=== PATIENT | female | born 1975 | race Caucasian/White ===

== ENCOUNTER → 2019-03-29 | Day surgery (SDC) | payer BC ==
[2019-03-24 12:11] LABS: Basophils # (auto) 0 uL; Monocytes # (auto) 0.7 uL; Monocytes % (auto) 7.5 % (0.0-12.0); Neutrophils # (auto) 6.4 uL; White Blood Cell 9.2 10^3/uL (4.4-10.8)
[2019-03-24 12:13] LABS: Basophils % (auto) 0.5 % (0.0-2.0); Eosinophils # (auto) 0.2 uL; Eosinophils % (auto) 2.6 % (0.0-7.0); Hematocrit 37.5 % (36.0-46.0); Hemoglobin 12.3 g/dL (12.2-16.2); Lymphocytes # (auto) 1.9 uL; Mean Corpuscular Hemoglobin 26.5 pg (28.0-32.0); Mean Corpuscular Hgb Conc. 32.7 g/dL (32.0-36.0); Mean Corpuscular Volume 81.1 fL (80.0-100.0); Neutrophils % (auto) 69.4 % (37.0-80.0); Platelet Count (auto) 405 10^3/uL (140-450); Red Blood Cells 4.62 10^6/uL (4.0-5.20); Red Cell Distribution Width 18.2 % (11.8-14.3)
[2019-03-24 12:26] LABS: INR 1.01 (0.9-1.15); Partial Thromboplastin Time 25.4 sec (23.64-32.05)
[2019-03-24 12:33] LABS: Albumin 3.7 g/dL (3.4-5.0); Calcium 9.1 mg/dL (8.5-10.1); Potassium 4.1 mmol/L (3.5-5.1)
[2019-03-24 12:37] LABS: BUN/Creatinine Ratio 15.4; Bilirubin, Total 0.3 mg/dL (0.2-1.0); Total Protein 7.9 g/dL (6.4-8.2)
[2019-03-24 12:46] LABS: Urine Bacteria NONE SEEN /hpf (None Seen); Urine Blood Negative /uL (Negative); Urine Specific Gravity 1.026 (1.001-1.035); Urine WBC 1 /hpf (0 - 5)
[~2019-03-29] VITALS: Ht 177.8 cm; Wt 98.9 kg
[~2019-03-29] MED LIST: ALPR0.5T PO; BUPIVACAINE 0.25% INJ 50ML VIAL ONE; BUPIVACAINE 0.5% MPF INJ 30ML SDV IJ ONE; BUPIVACAINE W/ EPINEPH 0.25% INJ 50ML MDV ONE; GABA600T PO; HYDROmorphone HCL 2 MG/ML VL ONE; LIDOCAINE 1% HCL (LOCAL ANESTH.) INJ 20ML MDV ONE; LIDOCAINE W/ EPINEPHRINE 1% 20ML VIAL ONE; MIDAZOLAM HCL 1MG/1ML-2 ML VIAL ONE; MILN50TA PO; ONDANSETRON HCL 4 MG/2 ML VIAL IV PRN; PROPOFOL 10 MG/ML 20 ML IV ONE; ROCURONIUM 10MG/ML 10ML VIAL IV ONE; TOPI100T29 PO; VENL75CA3 PO; ceFAZolin 1GM/50ML 100 ML IV ONE; ePHEDrine SULFATE 50 MG/ML AMP IV PRN; fentaNYL CITRATE 5 ML ONE; hydrALAZINE HCL 20 MG/ML VL IV PRN
[2019-03-29] MEDS: HYDROmorphone HCL 2 MG/ML VL IV PRN ×8 (09:11→10:21)
[2019-03-29 10:40] VITALS: BP 126/81
== END | disposition home or self-care (01) ==
LOC: SUR 05:59
PROVIDERS: ATTEND Orthopaedic Surgery Adult Reconstructive Orthopaedic Surgery
DX: S82.841A Displaced bimalleolar fracture of right lower leg, initial encounter for closed fracture (principal); S82.891A Other fracture of right lower leg, initial encounter for closed fracture; E66.9 Obesity, unspecified; G43.909 Migraine, unspecified, not intractable, without status migrainosus; Z79.899 Other long term (current) drug therapy; Z98.51 Tubal ligation status; Z98.890 Other specified postprocedural states; Z68.31 Body mass index [BMI] 31.0-31.9, adult; X50.1XXA Overexertion from prolonged static or awkward postures, initial encounter; Y93.89 Activity, other specified; Y92.89 Other specified places as the place of occurrence of the external cause; Y99.8 Other external cause status
CPT/HCPCS: 27822; 27829; 36415; 73600; 80053; 81001; 84702; 85025; 85610; 85730; C1713; C1769; J0690; J1170; J2250; J2704; J3010; J3490; 76000; J2001

== ENCOUNTER → 2020-04-01 | Outpatient (CLI) | payer OTHER ==
[~2020-04-01] MED LIST changes: -BUPIVACAINE 0.25% INJ 50ML VIAL ONE; -BUPIVACAINE 0.5% MPF INJ 30ML SDV IJ ONE; -BUPIVACAINE W/ EPINEPH 0.25% INJ 50ML MDV ONE; -HYDROmorphone HCL 2 MG/ML VL ONE; -LIDOCAINE 1% HCL (LOCAL ANESTH.) INJ 20ML MDV ONE; -LIDOCAINE W/ EPINEPHRINE 1% 20ML VIAL ONE; -MIDAZOLAM HCL 1MG/1ML-2 ML VIAL ONE; -ONDANSETRON HCL 4 MG/2 ML VIAL IV PRN; -PROPOFOL 10 MG/ML 20 ML IV ONE; -ROCURONIUM 10MG/ML 10ML VIAL IV ONE; -ceFAZolin 1GM/50ML 100 ML IV ONE; -ePHEDrine SULFATE 50 MG/ML AMP IV PRN; -fentaNYL CITRATE 5 ML ONE; -hydrALAZINE HCL 20 MG/ML VL IV PRN
[2020-04-01 11:53] LABS: Basophils # (auto) 0 10 ^3/uL (0-0.2); Basophils % (auto) 0.5 % (0.0-2.0); Eosinophils # (auto) 0.2 10 ^3/uL (0-0.8); Monocytes # (auto) 0.6 10 ^3/uL (0-1.3); Monocytes % (auto) 6.8 % (0.0-12.0); Nucleated Red Blood Cells % 0.1 %
[2020-04-01 11:56] LABS: Eosinophils % (auto) 2.6 % (0.0-7.0); Hematocrit 31.6 % (36.0-46.0); Hemoglobin 10.5 g/dL (12.2-16.2); Lymphocytes % (auto) 23.1 % (10.0-50.0); Mean Corpuscular Hemoglobin 26.3 pg (28.0-32.0); Mean Corpuscular Hgb Conc. 33.4 g/dL (32.0-36.0); Mean Corpuscular Volume 78.8 fL (80.0-100.0); Neutrophils # (auto) 5.7 10 ^3/uL (1.6-8.6); Platelet Count (auto) 382 10^3/uL (140-450); White Blood Cell 8.4 10^3/uL (4.4-10.8)
[2020-04-01 12:04] LABS: Urine Bacteria FEW /hpf (None Seen); Urine Blood Negative /uL (Negative); Urine Specific Gravity 1.015 (1.001-1.035); Urine WBC 1 /hpf (0 - 5)
[2020-04-01 12:14] LABS: Albumin 3.2 g/dL (3.4-5.0)
[2020-04-01 12:26] LABS: BUN/Creatinine Ratio 14.3; Bilirubin, Total 0.3 mg/dL (0.2-1.0); Calcium 8.8 mg/dL (8.5-10.1); Total Protein 7.3 g/dL (6.4-8.2)
== END | disposition home or self-care (01) ==
LOC: LAB 10:52
PROVIDERS: ATTEND Student in an Organized Health Care Education/Training Program
DX: R53.83 Other fatigue (principal); E55.9 Vitamin D deficiency, unspecified; R73.9 Hyperglycemia, unspecified
CPT/HCPCS: 36415; 80053; 80061; 81001; 82306; 82607; 83036; 84443; 85025

== ENCOUNTER → 2020-05-15 | Outpatient (CLI) | payer OTHER | END | disposition home or self-care (01) | LOC: XYW 09:01 | PROVIDERS: ATTEND Orthopaedic Surgery Adult Reconstructive Orthopaedic Surgery | DX: S83.242A Other tear of medial meniscus, current injury, left knee, initial encounter (principal); M22.42 Chondromalacia patellae, left knee; M25.462 Effusion, left knee; M65.88 Other synovitis and tenosynovitis, other site; X58.XXXA Exposure to other specified factors, initial encounter; Y93.89 Activity, other specified; Y92.89 Other specified places as the place of occurrence of the external cause; Y99.8 Other external cause status | CPT/HCPCS: 73721 ==

== ENCOUNTER → 2020-09-05 | Outpatient (CLI) | payer MEDICAID | END | disposition home or self-care (01) | LOC: LAB 09:26 | PROVIDERS: ATTEND Student in an Organized Health Care Education/Training Program | DX: R73.03 Prediabetes (principal); M25.50 Pain in unspecified joint | CPT/HCPCS: 36415; 83036; 85652 ==

== ENCOUNTER 2020-09-24 08:25 | Day surgery (SDC) | payer MEDICAID ==
[2020-09-20 15:36] LABS: Urine Bacteria NONE SEEN /hpf (None Seen); Urine Blood Negative /uL (Negative); Urine Budding Yeast MODERATE /hpf (None Seen); Urine Specific Gravity 1.016 (1.001-1.035); Urine WBC 5 /hpf (0 - 5)
[2020-09-20 15:38] LABS: Eosinophils # (auto) 0 10 ^3/uL (0-0.8)
[2020-09-20 15:39] LABS: Basophils # (auto) 0.1 10 ^3/uL (0-0.2); Basophils % (auto) 0.4 % (0.0-2.0); Eosinophils % (auto) 0.2 % (0.0-7.0); Hematocrit 34.7 % (36.0-46.0); Lymphocytes # (auto) 2.9 10 ^3/uL (0.4-5.4); Mean Corpuscular Hgb Conc. 31.7 g/dL (32.0-36.0); Mean Corpuscular Volume 75.7 fL (80.0-100.0); Monocytes # (auto) 1.1 10 ^3/uL (0-1.3); Monocytes % (auto) 7.8 % (0.0-12.0); Neutrophils # (auto) 9.8 10 ^3/uL (1.6-8.6); Neutrophils % (auto) 70.6 % (37.0-80.0); Red Blood Cells 4.59 10^6/uL (4.0-5.20); White Blood Cell 13.9 10^3/uL (4.4-10.8)
[2020-09-20 15:58] LABS: Albumin 3.5 g/dL (3.4-5.0); Calcium 8.8 mg/dL (8.5-10.1); Potassium 4.3 mmol/L (3.5-5.1)
[2020-09-20 15:59] LABS: Red Cell Distribution Width 20.4 % (11.8-14.3)
[2020-09-20 16:02] LABS: BUN/Creatinine Ratio 12.2; Bilirubin, Total 0.2 mg/dL (0.2-1.0)
[~2020-09-24] VITALS: Ht 175.3 cm; Wt 122.9 kg
[~2020-09-24 08:25] MED LIST changes: +ATEN-60 PO; +CYCL5TAB PO; +DULO60CA PO; -MILN50TA PO; +PRED20TA2 PO; +PRIM50TA27 PO
[2020-09-24] MEDS ORDERED: ceFAZolin 1GM/50ML 100 ML IV ONE (08:43)
[2020-09-24] MEDS ORDERED: LIDOCAINE 2% (LOCAL ANESTH.) PF 5ml SDV ONE ×2 (09:02→11:01)
[2020-09-24] MEDS ORDERED: NEOSTIGMINE 1 MG/ML INJ (10mg/10ML VIAL) ONE ×2 (09:02→11:51)
[2020-09-24] MEDS ORDERED: MIDAZOLAM HCL 2MG/2ML 2ml VIAL (1mg/ml) ONE ×2 (09:02→10:59)
[2020-09-24] MEDS ORDERED: fentaNYL CITRATE 100 MCG/2 ML VL ONE ×2 (09:02→10:59)
[2020-09-24] MEDS ORDERED: ROCURONIUM 10MG/ML 10ML VIAL IV ONE ×2 (09:02→11:00)
[2020-09-24] MEDS ORDERED: MEPERIDINE HCL (25 MG/ML) 1ML VIAL ONE (09:02)
[2020-09-24] MEDS ORDERED: ONDANSETRON HCL 4 MG/2 ML VIAL ONE ×2 (09:02→11:01)
[2020-09-24] MEDS ORDERED: GLYCOPYRROLATE 0.2 MG/ML 1ML VIAL ONE ×2 (09:02→11:51)
[2020-09-24] MEDS ORDERED: PROPOFOL 10 MG/ML 20 ML IV ONE ×2 (09:02→11:02)
[2020-09-24] MEDS ORDERED: SODIUM CHLORIDE LOCK 0 ML ONE (09:02)
[2020-09-24] MEDS ORDERED: BUPIVACAINE HCL 50 ML ONE (10:15)
[2020-09-24] MEDS ORDERED: EPINEPHrine HCL 1 MG/1 ML AMP ONE ×2 (10:16→10:18)
[2020-09-24] MEDS ORDERED: ONDANSETRON HCL 4 MG/2 ML VIAL IV PRN (12:00)
[2020-09-24] MEDS ORDERED: HYDROmorphone HCL 2 MG/ML VL IV PRN ×2 (12:00)
[2020-09-24 12:40] VITALS: BP 93/57
[2020-09-24] MEDS ORDERED: fentaNYL CITRATE 5 ML ONE (13:27)
== END 2020-09-24 13:00 | disposition home or self-care (01) ==
LOC: SUR 08:25
PROVIDERS: ATTEND Orthopaedic Surgery Sports Medicine
DX: M94.261 Chondromalacia, right knee (principal); S83.242D Other tear of medial meniscus, current injury, left knee, subsequent encounter; E66.01 Morbid (severe) obesity due to excess calories; G43.909 Migraine, unspecified, not intractable, without status migrainosus; F41.9 Anxiety disorder, unspecified; G89.29 Other chronic pain; M79.7 Fibromyalgia; F32.9 Major depressive disorder, single episode, unspecified; Z98.51 Tubal ligation status; Z98.890 Other specified postprocedural states; Z79.899 Other long term (current) drug therapy; Z20.822 Contact with and (suspected) exposure to COVID-19; Z68.41 Body mass index [BMI] 40.0-44.9, adult; Y92.89 Other specified places as the place of occurrence of the external cause; Y93.89 Activity, other specified; Y99.8 Other external cause status
CPT/HCPCS: 29879; 36415; 80053; 81001; 81025; 84702; 85025; J0690; J1170; J2001; J2175; J2250; J2405; J2704; J3010; J3490; U0003; J0171

== ENCOUNTER → 2020-11-11 | Outpatient (CLI) | payer MEDICAID ==
[2020-11-11 15:25] LABS: Calcium 8.8 mg/dL (8.5-10.1); Potassium 3.9 mmol/L (3.5-5.1)
[2020-11-11 15:28] LABS: BUN/Creatinine Ratio 14.9
== END | disposition home or self-care (01) ==
LOC: LAB 14:49
PROVIDERS: ATTEND Student in an Organized Health Care Education/Training Program
DX: E11.9 Type 2 diabetes mellitus without complications (principal)
CPT/HCPCS: 36415; 80048; 80061; 82043; 83036

== ENCOUNTER → 2021-04-03 | Outpatient (CLI) | payer MEDICAID ==
[~2021-04-03] MED LIST changes: +CYCL-837 PO; -CYCL5TAB PO
== END | disposition home or self-care (01) ==
LOC: LAB 10:43
PROVIDERS: ATTEND Internal Medicine Gastroenterology
DX: K52.9 Noninfective gastroenteritis and colitis, unspecified (principal)
CPT/HCPCS: 87493

== ENCOUNTER 2021-06-25 12:21 | Day surgery (SDC) | payer MEDICAID ==
[2021-06-23 15:24] LABS: Basophils # (auto) 0 10 ^3/uL (0-0.2); Eosinophils # (auto) 0.1 10 ^3/uL (0-0.8); Eosinophils % (auto) 1.5 % (0.0-7.0); Hemoglobin 10.1 g/dL (12.2-16.2); Lymphocytes # (auto) 2.4 10 ^3/uL (0.4-5.4); Monocytes # (auto) 0.7 10 ^3/uL (0-1.3); Nucleated Red Blood Cells % 0.1 %
[2021-06-23 15:26] LABS: Basophils % (auto) 0.3 % (0.0-2.0); Lymphocytes % (auto) 25.4 % (10.0-50.0); Mean Corpuscular Hgb Conc. 31.7 g/dL (32.0-36.0); Mean Corpuscular Volume 72.5 fL (80.0-100.0); Neutrophils # (auto) 6.3 10 ^3/uL (1.6-8.6); Neutrophils % (auto) 65.8 % (37.0-80.0); Red Blood Cells 4.41 10^6/uL (4.0-5.20); White Blood Cell 9.6 10^3/uL (4.4-10.8)
[2021-06-23 15:31] LABS: Albumin 3.4 g/dL (3.4-5.0); BUN/Creatinine Ratio 7.3; Calcium 8.7 mg/dL (8.5-10.1); Potassium 3.4 mmol/L (3.5-5.1)
[2021-06-23 15:34] LABS: Bilirubin, Total 0.2 mg/dL (0.2-1.0); Total Protein 7.3 g/dL (6.4-8.2)
[2021-06-23 15:35] LABS: Red Cell Distribution Width 22.7 % (11.8-14.3)
[2021-06-23 15:39] LABS: INR 1.01 (0.9-1.15); Partial Thromboplastin Time 25.9 sec (23.6-33.0)
[~2021-06-25] VITALS: Ht 177.8 cm; Wt 120.2 kg
[~2021-06-25 12:21] MED LIST changes: +BACL20TA PO; +BREX1TAB2 PO; -CYCL-837 PO; -GABA600T PO; +LEVE500T32 PO; -PRED20TA2 PO; +PREG100C PO
[2021-06-25] MEDS ORDERED: LIDOCAINE VISCOUS 2% 15ML UD ONE (13:58)
[2021-06-25] MEDS ORDERED: SODIUM CHLORIDE LOCK 10 ML ONE (13:58)
[2021-06-25] MEDS: diphenhdrAMINE HCL 50 MG/1 ML VL ONE ×2 (14:22→14:25)
[2021-06-25] MEDS: fentaNYL CITRATE 100 MCG/2 ML VL ONE ×2 (14:22→14:25)
[2021-06-25] MEDS: MIDAZOLAM HCL 5 MG/ML-1ML VIAL ONE ×3 (14:22→14:28)
[2021-06-25 15:00] VITALS: BP 118/66
== END 2021-06-25 15:05 | disposition home or self-care (01) ==
LOC: GI 12:21
PROVIDERS: ATTEND Internal Medicine Gastroenterology
DX: R10.13 Epigastric pain (principal); K29.90 Gastroduodenitis, unspecified, without bleeding; K44.9 Diaphragmatic hernia without obstruction or gangrene; K29.50 Unspecified chronic gastritis without bleeding; G43.909 Migraine, unspecified, not intractable, without status migrainosus; F41.9 Anxiety disorder, unspecified; F32.A Depression, unspecified; Z98.51 Tubal ligation status; Z98.890 Other specified postprocedural states; Z79.899 Other long term (current) drug therapy; Z86.2 Personal history of diseases of the blood and blood-forming organs and certain disorders involving the immune mechanism; Z20.822 Contact with and (suspected) exposure to COVID-19
CPT/HCPCS: 36415; 43239; 80053; 81025; 84702; 85025; 85610; 85730; 88305; 88342; J1200; J2250; J3010; J7030; U0003; 99152

== ENCOUNTER 2021-07-05 19:13 | Emergency (ER) | payer MEDICAID ==
[~2021-07-05] VITALS: Ht 177.8 cm; Wt 122.5 kg
[2021-07-05 21:38] LABS: Urine Bacteria NONE SEEN /hpf (None Seen); Urine Blood 3+ /uL (Negative); Urine Mucus FEW (None Seen); Urine Specific Gravity 1.025 (1.001-1.035); Urine WBC 14 /hpf (0 - 5)
[2021-07-06 01:54] LABS: Basophils # (auto) 0 10 ^3/uL (0-0.2); Basophils % (auto) 0.1 % (0.0-2.0); Eosinophils # (auto) 0 10 ^3/uL (0-0.8); Eosinophils % (auto) 0.3 % (0.0-7.0); White Blood Cell 14.1 10^3/uL (4.4-10.8)
[2021-07-06 01:56] LABS: Hematocrit 32.2 % (36.0-46.0); Hemoglobin 10.4 g/dL (12.2-16.2); Lymphocytes # (auto) 1.8 10 ^3/uL (0.4-5.4); Mean Corpuscular Hemoglobin 24.7 pg (28.0-32.0); Mean Corpuscular Hgb Conc. 32.4 g/dL (32.0-36.0); Mean Corpuscular Volume 76.2 fL (80.0-100.0); Monocytes # (auto) 0.9 10 ^3/uL (0-1.3); Monocytes % (auto) 6.6 % (0.0-12.0); Neutrophils # (auto) 11.3 10 ^3/uL (1.6-8.6); Red Blood Cells 4.22 10^6/uL (4.0-5.20)
[2021-07-06 02:06] LABS: Albumin 3.3 g/dL (3.4-5.0); Calcium 8.8 mg/dL (8.5-10.1); Potassium 3.1 mmol/L (3.5-5.1)
[2021-07-06 02:09] LABS: BUN/Creatinine Ratio 14.3
[2021-07-06 02:12] LABS: Bilirubin, Total 0.5 mg/dL (0.2-1.0); Total Protein 7.7 g/dL (6.4-8.2)
[2021-07-06] MEDS ORDERED: MORPHINE SULFATE 4 MG/ML SYR/VIAL IV ONE (03:15)
[2021-07-06] MEDS ORDERED: ONDANSETRON HCL 4 MG/2 ML VIAL IV ONE (03:15)
[2021-07-06] MEDS ORDERED: SODIUM CHLORIDE 0.9% 1,000 ML IV ONE (03:15)
[2021-07-06 07:13] VITALS: BP 124/68
== END 2021-07-06 07:20 | disposition short-term general hospital (02) ==
LOC: ER 19:13
DX: K85.10 Biliary acute pancreatitis without necrosis or infection (principal); Z20.822 Contact with and (suspected) exposure to COVID-19
CPT/HCPCS: 36415; 74176; 80053; 81001; 83690; 85025; 87426; 96361; 96374; 96375; 99285; J2270; J2405; J7030

== ENCOUNTER 2022-02-17 06:10 | Day surgery (SDC) | payer MEDICAID, OTHER ==
[2022-02-12 11:43] LABS: Urine Bacteria NONE SEEN /hpf (None Seen); Urine Blood 3+ /uL (Negative); Urine Specific Gravity 1.015 (1.001-1.035); Urine WBC 6 /hpf (0 - 5)
[2022-02-12 11:55] LABS: INR 0.92 (0.9-1.15); Partial Thromboplastin Time 27.1 sec (24.6-33.4)
[2022-02-12 17:04] LABS: BUN/Creatinine Ratio 15.7; Bilirubin, Total 0.2 mg/dL (0.2-1.0); Calcium 8.6 mg/dL (8.5-10.1)
[2022-02-12 17:05] LABS: Albumin 3.1 g/dL (3.4-5.0)
[2022-02-12 17:32] LABS: Basophils # (auto) 0.1 10 ^3/uL (0-0.2); Eosinophils # (auto) 0.3 10 ^3/uL (0-0.8); Hemoglobin 12.8 g/dL (12.2-16.2); Lymphocytes # (auto) 1.9 10 ^3/uL (0.4-5.4); Mean Corpuscular Hemoglobin 29.3 pg (28.0-32.0); Monocytes # (auto) 0.7 10 ^3/uL (0-1.3); Red Cell Distribution Width 16.1 % (11.8-14.3); White Blood Cell 9.1 10^3/uL (4.4-10.8)
[2022-02-12 17:34] LABS: Eosinophils % (auto) 2.8 % (0.0-7.0); Hematocrit 39.5 % (36.0-46.0); Lymphocytes % (auto) 21.3 % (10.0-50.0); Mean Corpuscular Hgb Conc. 32.3 g/dL (32.0-36.0); Mean Corpuscular Volume 90.6 fL (80.0-100.0); Monocytes % (auto) 7.3 % (0.0-12.0); Neutrophils # (auto) 6.2 10 ^3/uL (1.6-8.6); Neutrophils % (auto) 67.6 % (37.0-80.0); Red Blood Cells 4.36 10^6/uL (4.0-5.20)
[~2022-02-17] VITALS: Ht 30.5 cm; Wt 0.5 kg
[2022-02-17] MEDS ORDERED: EPINEPHrine HCL 1 MG/1 ML AMP ONE ×2 (06:35→06:46)
[2022-02-17] MEDS ORDERED: DexAMETHasone SOD PHOS 4 MG/1ML SDV INJ ONE (06:46)
[2022-02-17] MEDS ORDERED: BUPIVACAINE W/ EPINEPH 0.25% INJ 50ML MDV ONE (06:46)
[2022-02-17] MEDS ORDERED: ceFAZolin 1GM/50ML 100 ML IV ONE (06:48)
[2022-02-17] MEDS ORDERED: DexAMETHasone SOD PHOS 10MG/1ML VIAL INJ ONE (06:54)
[2022-02-17] MEDS ORDERED: GLYCOPYRROLATE 0.2 MG/ML 1ML VIAL ONE (06:54)
[2022-02-17] MEDS ORDERED: ONDANSETRON HCL 4 MG/2 ML VIAL ONE (06:54)
[2022-02-17] MEDS ORDERED: KETOROLAC TROMETH 30 MG/ML 1ML VIAL ONE (06:54)
[2022-02-17] MEDS ORDERED: PROPOFOL 10 MG/ML 20 ML IV ONE (06:54)
[2022-02-17] MEDS ORDERED: LIDOCAINE 2%HCL (LOCAL ANESTH.) INJ 10ml MDV ONE (06:57)
[2022-02-17] MEDS ORDERED: fentaNYL CITRATE 100 MCG/2 ML VL ONE (07:07)
[2022-02-17] MEDS ORDERED: ePHEDrine SULFATE 50 MG/ML AMP ONE (07:52)
[2022-02-17] MEDS ORDERED: SODIUM CHLORIDE LOCK 10 ML ONE (07:52)
[2022-02-17] MEDS ORDERED: NALOXONE HCL 0.4 MG/ML VIAL IV PRN (08:45)
[2022-02-17] MEDS ORDERED: FLUMAZENIL 0.1 MG/ML INJ 10ML MDV IV PRN (08:45)
[2022-02-17] MEDS ORDERED: ePHEDrine SULFATE 50 MG/ML AMP IV PRN (08:45)
[2022-02-17] MEDS ORDERED: LABETALOL HCL 5 MG/ML 4ML SYRINGE IV PRN (08:45)
[2022-02-17] MEDS ORDERED: ONDANSETRON HCL 4 MG/2 ML VIAL IV PRN (08:45)
[2022-02-17] MEDS ORDERED: fentaNYL CITRATE 100 MCG/2 ML VL IV PRN (08:45)
[2022-02-17] MEDS ORDERED: HYDROmorphone HCL 2 MG/ML VL/or syr IV PRN (08:45)
[2022-02-17] MEDS ORDERED: hydrALAZINE HCL 20 MG/ML VL IV PRN (08:45)
[2022-02-17 09:35] VITALS: BP 106/67
== END 2022-02-17 09:40 | disposition home or self-care (01) ==
LOC: SUR 06:10
PROVIDERS: ATTEND Orthopaedic Surgery Sports Medicine
DX: M22.42 Chondromalacia patellae, left knee (principal); G89.29 Other chronic pain; M25.562 Pain in left knee; Z20.822 Contact with and (suspected) exposure to COVID-19
CPT/HCPCS: 29879; 29999; 36415; 80053; 81001; 81025; 84702; 85025; 85610; 85730; C1713; J0171; J0690; J1100; J1170; J1885; J2001; J2405; J2704; J3010; U0003

== ENCOUNTER → 2022-03-27 | Day surgery (SDC) | payer MEDICAID ==
[2022-03-25 14:18] LABS: INR 0.98 (0.9-1.15); Partial Thromboplastin Time 27.3 sec (24.6-33.4)
[2022-03-25 14:49] LABS: Albumin 3.7 g/dL (3.4-5.0); BUN/Creatinine Ratio 11.3; Calcium 9.3 mg/dL (8.5-10.1); Potassium 3.7 mmol/L (3.5-5.1)
[2022-03-25 14:52] LABS: Bilirubin, Total 0.4 mg/dL (0.2-1.0); Total Protein 7.8 g/dL (6.4-8.2)
[2022-03-25 16:04] LABS: Basophils # (auto) 0.1 10 ^3/uL (0-0.2); Basophils % (auto) 0.5 % (0.0-2.0); Eosinophils # (auto) 0.1 10 ^3/uL (0-0.8); Eosinophils % (auto) 1.3 % (0.0-7.0); Hematocrit 44.3 % (36.0-46.0); Lymphocytes # (auto) 1.8 10 ^3/uL (0.4-5.4); Lymphocytes % (auto) 15.8 % (10.0-50.0); Mean Corpuscular Hemoglobin 30.5 pg (28.0-32.0); Monocytes # (auto) 0.6 10 ^3/uL (0-1.3); Monocytes % (auto) 5.2 % (0.0-12.0); Neutrophils # (auto) 8.7 10 ^3/uL (1.6-8.6); Neutrophils % (auto) 77.2 % (37.0-80.0); Nucleated Red Blood Cells % 0.1 %; Red Blood Cells 4.92 10^6/uL (4.0-5.20); Red Cell Distribution Width 14.9 % (11.8-14.3); White Blood Cell 11.3 10^3/uL (4.4-10.8)
[~2022-03-27] VITALS: Ht 177.8 cm; Wt 120.2 kg
[~2022-03-27] MED LIST changes: +DULA1INJ SC; +fentaNYL CITRATE 100 MCG/2 ML VL ONE
[2022-03-27] MEDS: fentaNYL CITRATE 100 MCG/2 ML VL ONE ×2 (16:09→16:12)
[2022-03-27] MEDS: diphenhdrAMINE HCL 50 MG/1 ML VL ONE ×2 (16:09→16:11)
[2022-03-27] MEDS: MIDAZOLAM HCL 2MG/2ML 2ml VIAL (1mg/ml) ONE ×4 (16:09→16:18)
[2022-03-27 18:03] VITALS: BP 124/76
== END | disposition home or self-care (01) ==
LOC: GI 11:29
PROVIDERS: ATTEND Internal Medicine Gastroenterology
DX: R19.4 Change in bowel habit (principal); K64.8 Other hemorrhoids; Q43.8 Other specified congenital malformations of intestine; G43.909 Migraine, unspecified, not intractable, without status migrainosus; K21.9 Gastro-esophageal reflux disease without esophagitis; F41.9 Anxiety disorder, unspecified; I49.9 Cardiac arrhythmia, unspecified; E66.9 Obesity, unspecified; Z68.38 Body mass index [BMI] 38.0-38.9, adult; Z87.19 Personal history of other diseases of the digestive system; Z98.890 Other specified postprocedural states; Z20.822 Contact with and (suspected) exposure to COVID-19
CPT/HCPCS: 36415; 45380; 80053; 84702; 85025; 85610; 85730; 88305; J1200; J2250; J3010; J7030; U0003; 99152

== ENCOUNTER 2022-05-22 10:35 | Inpatient (IN) | payer MEDICAID ==
[~2022-05-22] VITALS: Ht 170.2 cm; Wt 144.9 kg
[~2022-05-22 10:35] MED LIST changes: -fentaNYL CITRATE 100 MCG/2 ML VL ONE
[2022-05-22 13:01] LABS: Basophils # (auto) 0 10 ^3/uL (0-0.2); Basophils % (auto) 0.1 % (0.0-2.0); Eosinophils # (auto) 0 10 ^3/uL (0-0.8); Hematocrit 49.3 % (36.0-46.0); Hemoglobin 15.9 g/dL (12.2-16.2); Lymphocytes # (auto) 0.7 10 ^3/uL (0.4-5.4); Lymphocytes % (auto) 3.9 % (10.0-50.0); Mean Corpuscular Hemoglobin 28.8 pg (28.0-32.0); Mean Corpuscular Hgb Conc. 32.2 g/dL (32.0-36.0); Mean Corpuscular Volume 89.5 fL (80.0-100.0); Monocytes # (auto) 0.9 10 ^3/uL (0-1.3); Monocytes % (auto) 5.1 % (0.0-12.0); Neutrophils # (auto) 16.4 10 ^3/uL (1.6-8.6); Neutrophils % (auto) 90.9 % (37.0-80.0); Nucleated Red Blood Cells % 0.1 %; Red Blood Cells 5.51 10^6/uL (4.0-5.20); Red Cell Distribution Width 16.4 % (11.8-14.3); White Blood Cell 18.1 10^3/uL (4.4-10.8)
[2022-05-22 13:20] LABS: Albumin 3.5 g/dL (3.4-5.0); Calcium 8.7 mg/dL (8.5-10.1)
[2022-05-22 13:24] LABS: BUN/Creatinine Ratio 13.7 (10.0-20.0); Bilirubin, Total 1.2 mg/dL (0.2-1.0); Total Protein 7.7 g/dL (6.4-8.2)
[2022-05-22] MEDS ORDERED: FAMOTIDINE (10MG/ML) 2ML VL IV ONE (16:00)
[2022-05-22] MEDS ORDERED: MAALOX PLUS or MAALOX 30 ML PO ONE (16:00)
[2022-05-22] MEDS ORDERED: LACTATED RINGER'S 1,000 ML IV ONE ×2 (16:00→17:45)
[2022-05-22] MEDS ORDERED: LIDOCAINE VISCOUS 2% 15ML UD PO ONE (16:00)
[2022-05-22] MEDS ORDERED: ONDANSETRON HCL 4 MG/2 ML VIAL IV ONE (16:00)
[2022-05-22] MEDS ORDERED: metFORMIN HYDROCHLORIDE 500 MG TAB PO ONE (16:00)
[2022-05-22] MEDS ORDERED: MORPHINE SULFATE 4 MG/ML SYR/VIAL IV ONE (17:45)
[2022-05-22] MEDS ORDERED: ONDANSETRON HCL 4 MG/2 ML VIAL IV PRN (21:15)
[2022-05-22] MEDS ORDERED: ALPRAZolam 0.5 MG TAB PO PRN (21:15)
[2022-05-22] MEDS ORDERED: DOCUSATE SOD 100 MG CAP PO PRN (21:15)
[2022-05-22] MEDS: BACLOFEN 10 MG TAB PO SCH (23:06)
[2022-05-22] MEDS: SODIUM CHLORIDE 0.9% 1,000 ML IV SCH (23:07)
[2022-05-22] MEDS: PREGABALIN 25 MG CAP PO SCH (23:20)
[2022-05-22] MEDS: PRIMIDONE 50 MG TAB PO SCH (23:21)
[2022-05-23] VITALS (17 sets, daily range): BP systolic 66–158; BP diastolic 13–112
[2022-05-23] MEDS: MORPHINE SULFATE INJ 2 MG/ml SYRG IV PRN ×2 (03:55→07:55)
[2022-05-23] MEDS: BACLOFEN 10 MG TAB PO SCH ×2 (06:36→14:00)
[2022-05-23 06:40] LABS: Basophils # (auto) 0 10 ^3/uL (0-0.2); Eosinophils # (auto) 0 10 ^3/uL (0-0.8); Hematocrit 51.7 % (36.0-46.0); Hemoglobin 17.1 g/dL (12.2-16.2); Lymphocytes # (auto) 1.3 10 ^3/uL (0.4-5.4); Lymphocytes % (auto) 5.9 % (10.0-50.0); Mean Corpuscular Hemoglobin 29.6 pg (28.0-32.0); Mean Corpuscular Hgb Conc. 33.1 g/dL (32.0-36.0); Mean Corpuscular Volume 89.6 fL (80.0-100.0); Monocytes # (auto) 1.1 10 ^3/uL (0-1.3); Neutrophils # (auto) 19.6 10 ^3/uL (1.6-8.6); Neutrophils % (auto) 89.1 % (37.0-80.0); Nucleated Red Blood Cells % 0.1 %; Red Blood Cells 5.76 10^6/uL (4.0-5.20); Red Cell Distribution Width 15.9 % (11.8-14.3)
[2022-05-23 07:02] LABS: Albumin 2.5 g/dL (3.4-5.0); Calcium 7.7 mg/dL (8.5-10.1); Potassium 4.4 mmol/L (3.5-5.1)
[2022-05-23 07:06] LABS: BUN/Creatinine Ratio 20.5 (10.0-20.0); Bilirubin, Total 1.3 mg/dL (0.2-1.0); Total Protein 7.2 g/dL (6.4-8.2)
[2022-05-23] MEDS: SODIUM CHLORIDE 0.9% 1,000 ML IV SCH ×4 (08:07→23:00)
[2022-05-23] MEDS ORDERED: cefTRIAXone 1GM/50ML D5W 50 ML IV SCH (09:00)
[2022-05-23] MEDS ORDERED: HYDROmorphone HCL 2 MG/ML VL/or syr IV ONE (09:00)
[2022-05-23] MEDS: PANTOPRAZOLE 40 MG/10 ML VIAL INJ IV SCH (09:36)
[2022-05-23] MEDS: ATENOLOL 25 MG TAB PO SCH (09:36)
[2022-05-23] MEDS: PRIMIDONE 50 MG TAB PO SCH ×2 (09:37→22:00)
[2022-05-23] MEDS: levETIRAcetam 500 MG TAB PO SCH (09:37)
[2022-05-23] MEDS ORDERED: NALOXONE HCL 0.4 MG/ML VIAL IV ONE ×3 (10:00→17:30)
[2022-05-23] MEDS: PREGABALIN 25 MG CAP PO SCH ×2 (10:00→22:00)
[2022-05-23] MEDS ORDERED: NALOXONE HCL 0.4 MG/ML VIAL IM ONE (10:00)
[2022-05-23] MEDS: VENLAFAXINE HCL 37.5mg XR cap PO SCH (10:00)
[2022-05-23] MEDS ORDERED: DEXTROSE (50%) 50ML SYRG IV PRN (10:00)
[2022-05-23] MEDS ORDERED: PIPERACILLIN-TAZOB 3.375GM 100 ML IV ONE (10:30)
[2022-05-23] MEDS ORDERED: SODIUM BICARBONATE 8.4 % INJ 50ML VIAL IV ONE ×2 (10:45→23:00)
[2022-05-23] MEDS: InsuLIN REG 1unit/0.01ml Soln (100units/ml) SC SCH ×2 (12:04→18:08)
[2022-05-23] MEDS: ACCU-CHEK COMFORT CURVE STRIP VI SCH ×2 (12:04→18:02)
[2022-05-23] MEDS ORDERED: VANCOMYCIN PER PHARMACY 0 MG IV SCH (16:15)
[2022-05-23] MEDS ORDERED: PIPERACILLIN-TAZOB 3.375GM 100 ML IV SCH (16:30)
[2022-05-23] MEDS ORDERED: VANCOMYCIN 1GM/250ML 250 ML IV ONE (16:45)
[2022-05-23] MEDS ORDERED: EPINEPHrine HCL 1 MG/1 ML AMP ONE (17:17)
[2022-05-23] MEDS ORDERED: NALOXONE HCL 0.4 MG/ML VIAL ONE (17:19)
[2022-05-23] MEDS ORDERED: ETOMIDATE (2MG/ML) 20ML VIAL IV ONE ×2 (17:27→17:30)
[2022-05-23] MEDS ORDERED: ROCURONIUM 10MG/ML 10ML VIAL IV ONE ×2 (17:27→17:30)
[2022-05-23] MEDS ORDERED: EPINEPHrine HCL 1 MG/1 ML AMP IM ONE (17:30)
[2022-05-23] MEDS: PROPOFOL 100 ML IV SCH (17:45)
[2022-05-23] MEDS: MIDAZOLAM DRIP 50 mg/50mL 50 ML IV SCH (17:54)
[2022-05-23] MEDS: PIPERACILLIN-TAZOB 3.375GM 100 ML IV SCH (18:00)
[2022-05-23] MEDS ORDERED: SODIUM CHLORIDE 0.9% 500 ML IV ONE (19:15)
[2022-05-23] MEDS ORDERED: NOREPINEPHRINE 8 MG/250ML KIT 250 ML IV SCH (19:15)
[2022-05-23] MEDS ORDERED: NOREPINEPHRINE 8 MG/250ML KIT 250 ML IV ONE (19:17)
[2022-05-23] MEDS: PHENYLEPHRINE IV 250 ML IV SCH (23:00)
[2022-05-23] MEDS: VASOPRESSIN 20 UNITS in SODIUM CHL 0.9% 99 ML IV SCH (23:00)
[2022-05-23] MEDS: NOREPINEPHRINE 8 MG/250ML KIT 250 ML IV SCH (23:30)
[2022-05-24] VITALS (94 sets, daily range): BP systolic 39–177; BP diastolic 11–118
[2022-05-24] MEDS: PIPERACILLIN-TAZOB 3.375GM 100 ML IV SCH ×4 (00:25→23:15)
[2022-05-24] MEDS: ACCU-CHEK COMFORT CURVE STRIP VI SCH ×4 (00:29→18:06)
[2022-05-24] MEDS: PHENYLEPHRINE IV 250 ML IV SCH ×3 (01:00→08:47)
[2022-05-24] MEDS ORDERED: IBUPROFEN 100MG/5ML ORAL SUSP 100 MG/5 ML UD GT ONE (01:45)
[2022-05-24] MEDS: VASOPRESSIN 20 UNITS in SODIUM CHL 0.9% 99 ML IV SCH ×2 (04:30→21:14)
[2022-05-24 05:08] LABS: Anion Gap 19 (5-15); BUN/Creatinine Ratio 14.9 (10.0-20.0); Blood Urea Nitrogen 59 mg/dL (7-18); Calcium 6.4 mg/dL (8.5-10.1); Carbon Dioxide 15 mmol/L (21-32); Chloride 107 mmol/L (98-107); GFR African American 16 mL/min; GFR Non-African American 13 mL/min; Glucose 216 mg/dL (74-106); Potassium 5.5 mmol/L (3.5-5.1); Sodium 141 mmol/L (136-145)
[2022-05-24] MEDS: SODIUM CHLORIDE 0.9% 1,000 ML IV SCH ×5 (05:20→21:27)
[2022-05-24] MEDS: InsuLIN REG 1unit/0.01ml Soln (100units/ml) SC SCH ×4 (06:22→18:00)
[2022-05-24] MEDS ORDERED: EPINEPHrine HCL 250 ML IV ONE (06:30)
[2022-05-24] MEDS: EPINEPHrine HCL 250 ML IV SCH (06:48)
[2022-05-24 08:33] LABS: Basophils # (auto) 0.1 10 ^3/uL (0-0.2); Basophils % (auto) 0.4 % (0.0-2.0); Eosinophils # (auto) 0 10 ^3/uL (0-0.8); Eosinophils % (auto) 0.2 % (0.0-7.0); Hematocrit 49.5 % (36.0-46.0); Hemoglobin 16.3 g/dL (12.2-16.2); Lymphocytes # (auto) 1.2 10 ^3/uL (0.4-5.4); Lymphocytes % (auto) 6.7 % (10.0-50.0); Mean Corpuscular Hemoglobin 29.6 pg (28.0-32.0); Mean Corpuscular Hgb Conc. 32.9 g/dL (32.0-36.0); Mean Corpuscular Volume 89.9 fL (80.0-100.0); Monocytes # (auto) 0.9 10 ^3/uL (0-1.3); Monocytes % (auto) 4.7 % (0.0-12.0); Red Cell Distribution Width 16.5 % (11.8-14.3); White Blood Cell 18.2 10^3/uL (4.4-10.8)
[2022-05-24 08:41] LABS: INR 1.91 (0.9-1.15)
[2022-05-24] MEDS: NOREPINEPHRINE 8 MG/250ML KIT 250 ML IV SCH (08:46)
[2022-05-24] MEDS: PREGABALIN 25 MG CAP PO SCH ×2 (10:00→21:25)
[2022-05-24] MEDS: VENLAFAXINE HCL 37.5mg XR cap PO SCH (10:00)
[2022-05-24] MEDS: PRIMIDONE 50 MG TAB PO SCH ×2 (10:00→21:26)
[2022-05-24] MEDS: ATENOLOL 25 MG TAB PO SCH (10:00)
[2022-05-24 10:29] LABS: Magnesium 2.5 mg/dL (1.6-2.6); Phosphorus 7.6 mg/dL (2.5-4.90)
[2022-05-24 10:30] LABS: Urine Bacteria FEW /hpf (None Seen); Urine Blood 3+ /uL (Negative); Urine Specific Gravity 1.028 (1.001-1.035); Urine WBC 15 /hpf (0 - 5)
[2022-05-24] MEDS: levETIRAcetam 500 MG TAB PO SCH (10:34)
[2022-05-24] MEDS: PANTOPRAZOLE 40 MG/10 ML VIAL INJ IV SCH (10:34)
[2022-05-24 10:44] LABS: Cannabinoid Screen, Urine NEGATIVE (NEGATIVE); Sodium Urine 8 mmol/L (40-220)
[2022-05-24] MEDS: ACETAMINOPHEN 325 MG TAB PO PRN (10:49)
[2022-05-24 10:52] LABS: Amphetamine Screen, Urine NEGATIVE (NEGATIVE); Barbiturate Scree,Urine NEGATIVE (NEGATIVE); Benzodiazephine Screen, Urine POSITIVE (NEGATIVE); Cocaine Screen, Urine NEGATIVE (NEGATIVE); Opiate Scree,Urine POSITIVE (NEGATIVE); Phencyclidine Screen, Urine NEGATIVE (NEGATIVE)
[2022-05-24 11:00] LABS: Protein, Urine 581.1 mg/dL (0.0-11.9)
[2022-05-24] MEDS: MIDAZOLAM DRIP 50 mg/50mL 50 ML IV SCH ×2 (11:00→23:40)
[2022-05-24] MEDS ORDERED: InsuLIN REG 1unit/0.01ml Soln (100units/ml) IV ONE (11:45)
[2022-05-24] MEDS ORDERED: CALCIUM GLUC 1,000mg/50ml-NS 50 ML IV ONE (11:45)
[2022-05-24] MEDS: BUMETANIDE INJECTION 12.5 MG in GIVE UN-DILUTED 0 ML IV SCH (13:57)
[2022-05-24] MEDS ORDERED: SODIUM ZIRCONIUM CYCL 10 GM PAK PO ONE (14:00)
[2022-05-24] MEDS: SODIUM BICARBONATE 50ML VIAL 50 ML in SOD CHL 0.45% 1,000 ML IV SCH ×3 (14:03→21:45)
[2022-05-24] MEDS: NOREPINEPHRINE BITARTRATE 32 MG in SODIUM CHL 0.9% 218 ML IV SCH (14:57)
[2022-05-24] MEDS ORDERED: LINEZOLID 600MG/300ML 300 ML IV SCH (15:30)
[2022-05-24] MEDS ORDERED: PATIENTS OWN MEDICATION (zyvox 600 MG) IV SCH ×2 (15:30)
[2022-05-24] MEDS ORDERED: SODIUM BICARBONATE 8.4 % INJ 50ML VIAL IV ONE ×3 (16:45→21:49)
[2022-05-24 17:19] LABS: Anion Gap 20 (5-15); Blood Urea Nitrogen 71 mg/dL (7-18); Carbon Dioxide 11 mmol/L (21-32); Chloride 110 mmol/L (98-107); Glucose 183 mg/dL (74-106); Potassium 4.9 mmol/L (3.5-5.1); Sodium 141 mmol/L (136-145)
[2022-05-24 17:20] LABS: Alanine Aminotransferase 9829 U/L (13-56); Albumin 1.9 g/dL (3.4-5.0); Alkaline Phosphatase 259 U/L (45-117); Aspartate Aminotransferase > 2000 U/L (15-37); BUN/Creatinine Ratio 14.6 (10.0-20.0); Bilirubin, Total 2.4 mg/dL (0.2-1.0); Calcium 6.5 mg/dL (8.5-10.1); GFR African American 12 mL/min; GFR Non-African American 10 mL/min; Total Protein 5.4 g/dL (6.4-8.2)
[2022-05-24] MEDS: PROPOFOL 100 ML IV SCH (17:45)
[2022-05-24] MEDS: LINEZOLID 600MG/300ML 300 ML IV SCH (18:09)
[2022-05-24 19:11] LABS: Magnesium 2.2 mg/dL (1.6-2.6); Potassium 4.7 mmol/L (3.5-5.1)
[2022-05-24] MEDS ORDERED: LACTULOSE 20Gm/30ML SOLN ONE (23:50)
[2022-05-25] VITALS (106 sets, daily range): BP systolic 67–172; BP diastolic 19–101
[2022-05-25] MEDS: ACCU-CHEK COMFORT CURVE STRIP VI SCH ×4 (00:05→18:24)
[2022-05-25] MEDS: LACTULOSE 10g/15ml SOLN 473ML PR SCH ×4 (01:45→18:31)
[2022-05-25 04:52] LABS: Albumin 1.7 g/dL (3.4-5.0); Potassium 4.9 mmol/L (3.5-5.1)
[2022-05-25 05:01] LABS: Bilirubin, Total 2.8 mg/dL (0.2-1.0); Total Protein 4.9 g/dL (6.4-8.2)
[2022-05-25 05:04] LABS: BUN/Creatinine Ratio 12.5 (10.0-20.0); Calcium 5.4 mg/dL (8.5-10.1)
[2022-05-25] MEDS: EPINEPHrine HCL 250 ML IV SCH (05:25)
[2022-05-25] MEDS ORDERED: CALCIUM GLUC 1,000mg/50ml-NS 50 ML IV ONE (05:30)
[2022-05-25] MEDS: LINEZOLID 600MG/300ML 300 ML IV SCH ×2 (05:34→18:24)
[2022-05-25] MEDS: MIDAZOLAM DRIP 50 mg/50mL 50 ML IV SCH ×3 (05:44→21:00)
[2022-05-25] MEDS: InsuLIN REG 1unit/0.01ml Soln (100units/ml) SC SCH ×4 (06:00→18:00)
[2022-05-25] MEDS: PIPERACILLIN-TAZOB 3.375GM 100 ML IV SCH ×3 (06:45→22:27)
[2022-05-25] MEDS ORDERED: SODIUM BICARBONATE 8.4% INJ 50ML SYRINGE ONE ×2 (07:09→18:43)
[2022-05-25] MEDS: SODIUM BICARBONATE 50ML VIAL 50 ML in SOD CHL 0.45% 1,000 ML IV SCH (07:43)
[2022-05-25] MEDS: PHENYLEPHRINE IV 250 ML IV SCH ×2 (08:20→16:45)
[2022-05-25] MEDS: VASOPRESSIN 20 UNITS in SODIUM CHL 0.9% 99 ML IV SCH ×2 (08:21→19:30)
[2022-05-25] MEDS: BUMETANIDE INJECTION 12.5 MG in GIVE UN-DILUTED 0 ML IV SCH (08:52)
[2022-05-25 09:01] LABS: Hepatitis B Surface Antibody Negative (Negative)
[2022-05-25 09:35] LABS: Hepatitis A Total Antibody Positive (Negative)
[2022-05-25] MEDS: PANTOPRAZOLE 40 MG/10 ML VIAL INJ IV SCH (09:54)
[2022-05-25] MEDS: PRIMIDONE 50 MG TAB PO SCH ×2 (09:55→21:09)
[2022-05-25] MEDS: PREGABALIN 25 MG CAP PO SCH (09:55)
[2022-05-25] MEDS: ATENOLOL 25 MG TAB PO SCH (09:56)
[2022-05-25] MEDS: VENLAFAXINE HCL 37.5mg XR cap PO SCH (09:57)
[2022-05-25] MEDS: levETIRAcetam 500 MG TAB PO SCH (10:54)
[2022-05-25] MEDS: fentaNYL Drip 2500mCg/250mlNS 250 ML IV SCH (11:03)
[2022-05-25] MEDS: NOREPINEPHRINE BITARTRATE 32 MG in SODIUM CHL 0.9% 218 ML IV SCH (11:45)
[2022-05-25] MEDS ORDERED: EPINEPHrine HCL 1 MG/10 ML SYRG IV ONE (13:07)
[2022-05-25] MEDS ORDERED: SODIUM BICARBONATE 8.4% INJ 50ML SYRINGE IV ONE (13:07)
[2022-05-25] MEDS ORDERED: DEXTROSE 10% 250 ML Bag IV ONE (13:07)
[2022-05-25 14:45] LABS: Hepatitis C Antibody Negative (Negative)
[2022-05-25 14:48] LABS: Hepatitis A Ab IgM Negative
[2022-05-25 14:50] LABS: Hepatitis B Core IgM Negative
[2022-05-25 14:53] LABS: Hepatitis C Antibody Negative (Negative)
[2022-05-25] MEDS ORDERED: SODIUM BICARBONATE 8.4 % INJ 50ML VIAL IV ONE (17:15)
[2022-05-25] MEDS: SODIUM CHLORIDE 0.9% 1,000 ML IV SCH (17:20)
[2022-05-25] MEDS ORDERED: HEPARIN 1,000 UNITS/ml 1ML VIAL ONE (17:45)
[2022-05-25] MEDS: PROPOFOL 100 ML IV SCH (17:45)
[2022-05-25] MEDS ORDERED: HEPARIN SODIUM (PORCINE) 5000 UNITS/ML 1ML VIAL IV ONE (18:00)
[2022-05-25] MEDS: CALCIUM GLUC 1,000mg/50ml-NS 50 ML IV SCH ×2 (18:45→19:45)
[2022-05-26] VITALS (108 sets, daily range): BP systolic 72–207; BP diastolic 19–111
[2022-05-26] MEDS: NOREPINEPHRINE BITARTRATE 32 MG in SODIUM CHL 0.9% 218 ML IV SCH ×2
[2022-05-26] MEDS: SODIUM CHLORIDE 0.9% 1,000 ML IV SCH ×5 (00:01→19:02)
[2022-05-26] MEDS: ACCU-CHEK COMFORT CURVE STRIP VI SCH ×5 (00:01→23:55)
[2022-05-26] MEDS: LACTULOSE 10g/15ml SOLN 473ML PR SCH ×5 (00:01→23:41)
[2022-05-26] MEDS: PHENYLEPHRINE IV 250 ML IV SCH ×3 (01:00→17:40)
[2022-05-26] MEDS: BUMETANIDE INJECTION 12.5 MG in GIVE UN-DILUTED 0 ML IV SCH (04:00)
[2022-05-26] MEDS: MIDAZOLAM DRIP 50 mg/50mL 50 ML IV SCH ×7 (04:33→23:13)
[2022-05-26] MEDS: InsuLIN REG 1unit/0.01ml Soln (100units/ml) SC SCH ×2 (06:00)
[2022-05-26] MEDS: LINEZOLID 600MG/300ML 300 ML IV SCH ×2 (06:22→19:01)
[2022-05-26] MEDS: EPINEPHrine HCL 250 ML IV SCH (06:30)
[2022-05-26] MEDS: VASOPRESSIN 20 UNITS in SODIUM CHL 0.9% 99 ML IV SCH ×2 (06:35→17:42)
[2022-05-26] MEDS: DEXTROSE 10% 250 ML IV PRN (06:36)
[2022-05-26 08:22] LABS: Hematocrit 36.4 % (36.0-46.0); Hemoglobin 11.7 g/dL (12.2-16.2); Mean Corpuscular Hgb Conc. 32.1 g/dL (32.0-36.0); Mean Corpuscular Volume 90.5 fL (80.0-100.0); Red Blood Cells 4.02 10^6/uL (4.0-5.20); White Blood Cell 18.1 10^3/uL (4.4-10.8)
[2022-05-26 08:32] LABS: Basophils % (manual) 0 (0.0-2.0); Blast Cells 0; Eosinophils % (manual) 0 (0-7); Metamyelocytes % 0; Myelocytes % 0; Promyelocytes % 0; Reactive Lymphocytes 0
[2022-05-26] MEDS ORDERED: ALBUMIN 25% 100 ML IV ONE ×3 (09:00)
[2022-05-26 09:34] LABS: Band Neutrophils % (manual) 4; Lymphocytes % (manual) 14 (10.0-50.0); Monocytes % (manual) 6 (0-12)
[2022-05-26] MEDS: PRIMIDONE 50 MG TAB PO SCH ×2 (10:00→21:56)
[2022-05-26 11:26] LABS: Albumin 1.6 g/dL (3.4-5.0); Alkaline Phosphatase 222 U/L (45-117); BUN/Creatinine Ratio 12.1 (10.0-20.0); Bilirubin, Total 2.5 mg/dL (0.2-1.0); Carbon Dioxide 12 mmol/L (21-32); GFR African American 8 mL/min; GFR Non-African American 7 mL/min; Glucose 143 mg/dL (74-106); Total Protein 4.3 g/dL (6.4-8.2)
[2022-05-26 12:01] LABS: Blood Urea Nitrogen 87 mg/dL (7-18)
[2022-05-26 12:03] LABS: Calcium 5.5 mg/dL (8.5-10.1)
[2022-05-26 12:15] LABS: Sodium 138 mmol/L (136-145)
[2022-05-26 12:17] LABS: Potassium 5.9 mmol/L (3.5-5.1)
[2022-05-26 12:18] LABS: Anion Gap 21 (5-15); Chloride 105 mmol/L (98-107)
[2022-05-26] MEDS: PIPERACILLIN-TAZOB 3.375GM 100 ML IV SCH ×2 (12:46→21:55)
[2022-05-26] MEDS: PANTOPRAZOLE 40 MG/10 ML VIAL INJ IV SCH (12:46)
[2022-05-26] MEDS ORDERED: CALCIUM GLUC 1,000mg/50ml-NS 50 ML IV ONE (13:00)
[2022-05-26] MEDS: fentaNYL Drip 2500mCg/250mlNS 250 ML IV SCH (13:07)
[2022-05-26] MEDS: PROPOFOL 100 ML IV SCH (17:45)
[2022-05-26 17:57] LABS: Alanine Aminotransferase 5139 U/L (13-56); Aspartate Aminotransferase 11231 U/L (15-37)
[2022-05-27] VITALS (104 sets, daily range): BP systolic 56–176; BP diastolic 19–111
[2022-05-27 04:50] LABS: Albumin 1.9 g/dL (3.4-5.0); Anion Gap 17 (5-15); Blood Urea Nitrogen 52 mg/dL (7-18); Carbon Dioxide 11 mmol/L (21-32); Chloride 114 mmol/L (98-107); Glucose 75 mg/dL (74-106); Potassium 4.7 mmol/L (3.5-5.1); Sodium 142 mmol/L (136-145)
[2022-05-27] MEDS: MIDAZOLAM DRIP 50 mg/50mL 50 ML IV SCH ×4 (04:58→09:46)
[2022-05-27] MEDS: PHENYLEPHRINE IV 250 ML IV SCH ×2 (04:59→08:40)
[2022-05-27 05:07] LABS: Alanine Aminotransferase 2370 U/L (13-56); Alkaline Phosphatase 126 U/L (45-117); Aspartate Aminotransferase 4254 U/L (15-37); BUN/Creatinine Ratio 9.6 (10.0-20.0); Bilirubin, Total 3.5 mg/dL (0.2-1.0); GFR African American 11 mL/min; GFR Non-African American 9 mL/min; Total Protein 3.5 g/dL (6.4-8.2)
[2022-05-27 05:41] LABS: Calcium < 5.0 mg/dL (8.5-10.1)
[2022-05-27 05:57] LABS: Hematocrit 31.8 % (36.0-46.0); Hemoglobin 10.2 g/dL (12.2-16.2); Mean Corpuscular Hemoglobin 29.2 pg (28.0-32.0); Mean Corpuscular Volume 91.3 fL (80.0-100.0); Red Blood Cells 3.48 10^6/uL (4.0-5.20); Red Cell Distribution Width 16.9 % (11.8-14.3); White Blood Cell 22.2 10^3/uL (4.4-10.8)
[2022-05-27 06:14] LABS: Basophils % (manual) 0 (0.0-2.0); Blast Cells 0; Myelocytes % 0; Promyelocytes % 0; Reactive Lymphocytes 0
[2022-05-27] MEDS: LINEZOLID 600MG/300ML 300 ML IV SCH (06:19)
[2022-05-27] MEDS: LACTULOSE 10g/15ml SOLN 473ML PR SCH ×3 (06:19→17:15)
[2022-05-27] MEDS: ACCU-CHEK COMFORT CURVE STRIP VI SCH ×3 (06:19→17:24)
[2022-05-27] MEDS: DEXTROSE 10% 250 ML IV PRN (06:20)
[2022-05-27 07:19] LABS: Band Neutrophils % (manual) 12; Eosinophils % (manual) 1 (0-7); Lymphocytes % (manual) 5 (10.0-50.0); Metamyelocytes % 2; Monocytes % (manual) 8 (0-12)
[2022-05-27] MEDS ORDERED: BUMETANIDE 2.5mg/10ml (0.25 mg/ml) INJ IV ONE (08:30)
[2022-05-27] MEDS ORDERED: SODIUM BICARBONATE 50ML VIAL 150 ML in D5W 5% 1,000 ML IV ONE (08:30)
[2022-05-27] MEDS ORDERED: SODIUM BICARBONATE 8.4 % INJ 50ML VIAL IV ONE ×2 (08:30→09:00)
[2022-05-27] MEDS: PANTOPRAZOLE 40 MG/10 ML VIAL INJ IV SCH ×2 (09:14→09:15)
[2022-05-27] MEDS: PIPERACILLIN-TAZOB 3.375GM 100 ML IV SCH (09:17)
[2022-05-27] MEDS: ACETAMINOPHEN 325 MG TAB PO PRN (09:17)
[2022-05-27] MEDS: PRIMIDONE 50 MG TAB PO SCH ×2 (09:18→21:49)
[2022-05-27] MEDS: fentaNYL Drip 2500mCg/250mlNS 250 ML IV SCH (09:47)
[2022-05-27 11:45] LABS: Magnesium 2.1 mg/dL (1.6-2.6)
[2022-05-27 11:54] LABS: Phosphorus 8.5 mg/dL (2.5-4.90)
[2022-05-27] MEDS ORDERED: TPN PER PHARMACY 0 ML IV SCH (13:15)
[2022-05-27] MEDS ORDERED: PHENYLEPHRINE INJ 80 MG in SODIUM CHL 0.9% 242 ML IV SCH (13:15)
[2022-05-27] MEDS: CALCIUM GLUC 1,000mg/50ml-NS 50 ML IV SCH ×4 (13:26→17:25)
[2022-05-27] MEDS ORDERED: VANCOMYCIN PER PHARMACY 0 MG IV SCH (13:45)
[2022-05-27] MEDS: NOREPINEPHRINE BITARTRATE 32 MG in SODIUM CHL 0.9% 218 ML IV SCH (13:56)
[2022-05-27] MEDS: PHENYLEPHRINE INJ 80 MG in SODIUM CHL 0.9% 242 ML IV SCH (13:56)
[2022-05-27] MEDS ORDERED: MEROPENEM 1GM IVPB 100 ML IV SCH (14:00)
[2022-05-27] MEDS ORDERED: VANCOMYCIN 1GM/250ML 250 ML IV ONE (14:00)
[2022-05-27] MEDS ORDERED: ARTIFICIAL TEARS 15ml EACHEYE PRN (16:30)
[2022-05-27] MEDS: MEROPENEM 500MG IVPB 50 ML IV SCH (16:46)
[2022-05-27] MEDS: BUMETANIDE 2.5mg/10ml (0.25 mg/ml) INJ IV SCH (17:23)
[2022-05-27] MEDS ORDERED: TPN PER PHARMACY IV NR ×6 (20:00)
[2022-05-28] VITALS (75 sets, daily range): BP systolic 51–118; BP diastolic 14–36
[2022-05-28] MEDS ORDERED: DEXTROSE (50%) 50ML SYRG IV SCH
[2022-05-28] MEDS ORDERED: PHENYLEPHRINE IV 250 ML IV ONE (01:22)
[2022-05-28] MEDS ORDERED: PHENYLEPHRINE HCL 10 MG/ML VL ONE (01:23)
[2022-05-28] MEDS: PHENYLEPHRINE INJ 80 MG in SODIUM CHL 0.9% 242 ML IV SCH (01:54)
[2022-05-28] MEDS: VASOPRESSIN 20 UNITS in SODIUM CHL 0.9% 99 ML IV SCH ×2 (03:06→14:32)
[2022-05-28] MEDS ORDERED: ALBUMIN 25% 200 ML IV ONE (04:00)
[2022-05-28] MEDS: ALBUMIN 25% 100 ML IV PRN ×2 (04:10→05:10)
[2022-05-28 04:39] LABS: Albumin 1.4 g/dL (3.4-5.0); Calcium 6.4 mg/dL (8.5-10.1); Magnesium 2.6 mg/dL (1.6-2.6)
[2022-05-28 04:56] LABS: BUN/Creatinine Ratio 8.1 (10.0-20.0); Bilirubin, Total 4.2 mg/dL (0.2-1.0); Total Protein 3.8 g/dL (6.4-8.2)
[2022-05-28 05:00] LABS: Phosphorus 12.6 mg/dL (2.5-4.90); Potassium 6.2 mmol/L (3.5-5.1)
[2022-05-28] MEDS: fentaNYL Drip 2500mCg/250mlNS 250 ML IV SCH (06:00)
[2022-05-28] MEDS: InsuLIN REG 1unit/0.01ml Soln (100units/ml) SC SCH ×4 (06:00→17:14)
[2022-05-28] MEDS: ACCU-CHEK COMFORT CURVE STRIP VI SCH ×4 (06:00→17:14)
[2022-05-28] MEDS: NOREPINEPHRINE BITARTRATE 32 MG in SODIUM CHL 0.9% 218 ML IV SCH (06:00)
[2022-05-28] MEDS: LACTULOSE 10g/15ml SOLN 473ML PR SCH ×4 (07:28→17:14)
[2022-05-28] MEDS: BUMETANIDE 2.5mg/10ml (0.25 mg/ml) INJ IV SCH (07:36)
[2022-05-28] MEDS: MEROPENEM 500MG IVPB 50 ML IV SCH ×2 (07:36→17:13)
[2022-05-28] MEDS ORDERED: VANCOMYCIN 1GM/250ML 250 ML IV ONE (08:00)
[2022-05-28] MEDS: CALCIUM ACETATE 667 MG CAP NG SCH ×3 (08:32→17:14)
[2022-05-28] MEDS ORDERED: BUMETANIDE INJECTION 12.5 MG in GIVE UN-DILUTED 0 ML IV SCH (09:30)
[2022-05-28] MEDS ORDERED: SODIUM BICARBONATE 50ML VIAL 150 ML in D5W 5% 1,000 ML IV SCH (10:00)
[2022-05-28] MEDS: PRIMIDONE 50 MG TAB PO SCH (10:14)
[2022-05-28] MEDS: PANTOPRAZOLE 40 MG/10 ML VIAL INJ IV SCH (10:14)
[2022-05-28 10:24] LABS: Hemoglobin 8.5 g/dL (12.2-16.2)
[2022-05-28 10:27] LABS: Hematocrit 28.3 % (36.0-46.0); Mean Corpuscular Hemoglobin 28.5 pg (28.0-32.0); Mean Corpuscular Hgb Conc. 30.1 g/dL (32.0-36.0); Mean Corpuscular Volume 94.6 fL (80.0-100.0); Red Blood Cells 2.99 10^6/uL (4.0-5.20); Red Cell Distribution Width 18.4 % (11.8-14.3); White Blood Cell 24.3 10^3/uL (4.4-10.8)
[2022-05-28 10:35] LABS: Basophils % (manual) 0 (0.0-2.0); Blast Cells 0; Eosinophils % (manual) 0 (0-7); Metamyelocytes % 0; Myelocytes % 0; Promyelocytes % 0; Reactive Lymphocytes 0
[2022-05-28 11:00] LABS: Lactic Acid w/Reflex 16.2 mmol/L (0.4-2.0)
[2022-05-28 11:13] LABS: Band Neutrophils % (manual) 12; Lymphocytes % (manual) 4 (10.0-50.0); Monocytes % (manual) 3 (0-12)
[2022-05-28] MEDS: MIDAZOLAM DRIP 50 mg/50mL 50 ML IV SCH (17:14)
[2022-05-28] MEDS ORDERED: LORazepam 2MG/ML-1ML VIAL ONE (19:37)
[2022-05-28] MEDS ORDERED: LORazepam 2MG/ML-1ML VIAL IV SCH (20:00)
[2022-05-28] MEDS ORDERED: TPN*HIGH CONC* PER PHARMACY IV NR ×6 (20:00)
[2022-05-28] MEDS ORDERED: MORPHINE SULFATE INJ 2 MG/ml SYRG IV SCH (20:00)
[2022-05-28] MEDS ORDERED: EPOETIN ALFA-EPBX 4,000 UNIT/ML VIAL SC ONE (21:00)
== END 2022-05-29 03:30 | DRG 720 ==
LOC: ER 10:35 → OVERFLOW 21:05 → ICU WEST 05-23 18:41
PROVIDERS: ADMIT Nurse Practitioner Family; ATTEND Internal Medicine
PROC: 5A1955Z Respiratory Ventilation, Greater than 96 Consecutive Hours (ICD-10-PCS; principal; 2022-05-23)
PROC: 5A12012 Performance of Cardiac Output, Single, Manual (ICD-10-PCS; 2022-05-23)
PROC: 0BH17EZ Insertion of Endotracheal Airway into Trachea, Via Natural or Artificial Opening (ICD-10-PCS; 2022-05-23)
PROC: 5A1D70Z Performance of Urinary Filtration, Intermittent, Less than 6 Hours Per Day (ICD-10-PCS; 2022-05-26)
PROC: 02HV33Z Insertion of Infusion Device into Superior Vena Cava, Percutaneous Approach (ICD-10-PCS; 2022-05-26)
PROC: 4A143B0 Monitoring of Venous Pressure, Central, Percutaneous Approach (ICD-10-PCS; 2022-05-26)
PROC: 04HY32Z Insertion of Monitoring Device into Lower Artery, Percutaneous Approach (ICD-10-PCS; 2022-05-26)
PROC: 5A1D70Z Performance of Urinary Filtration, Intermittent, Less than 6 Hours Per Day (ICD-10-PCS; 2022-05-28)
DX: A41.9 Sepsis, unspecified organism (principal); J96.01 Acute respiratory failure with hypoxia; I46.9 Cardiac arrest, cause unspecified; N17.0 Acute kidney failure with tubular necrosis; K72.00 Acute and subacute hepatic failure without coma; K85.30 Drug induced acute pancreatitis without necrosis or infection; G92.8 Other toxic encephalopathy; R65.21 Severe sepsis with septic shock; N18.6 End stage renal disease; D68.4 Acquired coagulation factor deficiency; E11.22 Type 2 diabetes mellitus with diabetic chronic kidney disease; D75.1 Secondary polycythemia; Z66 Do not resuscitate; G93.1 Anoxic brain damage, not elsewhere classified; E66.01 Morbid (severe) obesity due to excess calories; E86.1 Hypovolemia; M79.7 Fibromyalgia; I49.9 Cardiac arrhythmia, unspecified; E87.1 Hypo-osmolality and hyponatremia; F41.9 Anxiety disorder, unspecified; G40.909 Epilepsy, unspecified, not intractable, without status epilepticus; G43.909 Migraine, unspecified, not intractable, without status migrainosus; G89.29 Other chronic pain; T50.905A Adverse effect of unspecified drugs, medicaments and biological substances, initial encounter; E88.09 Other disorders of plasma-protein metabolism, not elsewhere classified; F32.A Depression, unspecified; I16.0 Hypertensive urgency; T78.2XXA Anaphylactic shock, unspecified, initial encounter; Z68.37 Body mass index [BMI] 37.0-37.9, adult; Z79.899 Other long term (current) drug therapy; Z99.2 Dependence on renal dialysis; Z90.49 Acquired absence of other specified parts of digestive tract; Y92.89 Other specified places as the place of occurrence of the external cause
CPT/HCPCS: 36415; 36600; 70450; 71045; 71250; 74176; 76705; 76775; 80048; 80053; 80074; 80202; 80307; 81001; 81025; 82010; 82140; 82150; 82306; 82570; 82728; 82805; 82947; 82962; 83036; 83605; 83690; 83735; 83970; 84100; 84132; 84156; 84300; 84478; 85007; 85025; 85027; 85610; 86038; 86704; 86706; 86708; 86803; 87040; 87070; 87077; 87081; 87086; 87205; 87340; 90935; 92950; 93005; 93306; 94002; 94003; 94640; 95819; 96361; 96365; 96367; 96375; 96376; C9113; G0378; J0171; J0696; J1642; J1815; J2185; J2250; J2405; J2543; J3490; J7060; J7131; P9047